=== PATIENT | male | born 1965 | race Caucasian/White ===

== ENCOUNTER 2024-03-18 10:19 | Emergency (ER) | payer OTHER ==
[2024-03-18 10:42] VITALS: PULSE 95; TEMP 98.3
--- NOTE | 2024-03-18 10:59 | ERPHSYRPT ---
- History of Present Illness Time Seen by Provider: 03/18/24 10:45 Historian: patient Exam Limitations: no limitations Patient Subjective Stated Complaint: Pt was eating a steak last night and feels that it is stuck just above the stomach, pt had it happen the day before and it finally had went down Triage Nursing Assessment: Pt brought self to the ER, vitals wnl, rates pain as 4/10, pulses normal, skin n/w/d, tried to take his medication this morning and vomited it up, no difficulty breathing, spitting up, doesn't appear to be in any distress Physician History: 58yo m pmhx multiple myeloma presents via private vehicle for food bolus sensation in his chest since for the past 18h. Pt states he was having steak for dinner last night when he felt like it "got stuck," reports discomfort in his epigastric region. Pt states he was unable to take his pills this AM, states he regurgitated them. Pt states he has been able to take small sips of water but reports no solid intake. Pt states he has had this same thing in the past, usually resolves w/ activity but has not this time. Pt states he had a similar episode 2d ago that resolved. Pt was recently started on new chemo medications, is concerned that they may have caused his sx. Pt denies cp, soa. Timing/Duration: yesterday Activities at Onset: none Quality: sharpness Abdominal Pain Onset Location: epigastric Pain Radiation: no radiation Severity of Pain-Max: mild Severity of Pain-Current: mild Modifying Factors: Improves With: nothing Associated Symptoms: denies symptoms Allergies/Adverse Reactions: Xihddvp-FMZ-[id number] Reductase Inhibitor Allergy (Verified 03/18/24 10:42) Home Medications: Acyclovir 200 mg Cap [Acyclovir] 200 mg PO BID 03/18/24 [History] Apixaban [Eliquis] 2.5 mg PO BID 03/18/24 [History] Aspirin 81 mg PO DAILY 03/18/24 [History] Biotin 5,000 mcg PO DAILY 03/18/24 [History] Hzdxfobyscc-Igoorzxjhvrlh-Yrkt [Darzalex Faspro 1,800Mg-30,000] 0 ml SQ UD 03/18/24 [History] Elotuzumab [Empliciti] 300 mg IV UD 03/18/24 [History] Fluticasone Propionate [Flonase NASAL] 1 spray NS DAILY 03/18/24 [History] Gemfibrozil [Lopid] 600 mg PO BID 03/18/24 [History] Lenalidomide [Revlimid] 15 mg PO DAILY 03/18/24 [History] Magnesium 200 mg PO DAILY 03/18/24 [History] Metolazone 2.5 mg [Zaroxolyn 2.5 MG] 2.5 mg PO UD 03/18/24 [History] Metoprolol Succinate 25 mg Xl* [Toprol-Xl 25MG Tablets] 25 mg PO DAILY 03/18/24 [History] PANTOPRAZOLE 40 mg Tablet [Protonix 40MG Tablet] 40 mg PO QAM 03/18/24 [History] Potassium Chloride 20 meq PO UD 03/18/24 [History] Sod Phos Di, Rush/K Phos Rush [K-Phos Neutral Tablet] 250 mg PO UD 03/18/24 [History] Torsemide 20 mg [Demadex 20 mg] 20 mg PO DAILY 03/18/24 [History] dexAMETHasone [Dexamethasone] 4 mg PO UD 03/18/24 [History] Hx Influenza Vaccination/Date Given: Yes Hx Pneumococcal Vaccination/Date Given: Yes Travel Risk - International Travel Have you traveled outside of the country in past 3 weeks: No - Emerging Infectious Disease Are you exhibiting symptoms associated with any current EIDs: No - Review of Systems Constitutional: No Symptoms Respiratory: No Cough, No Dyspnea, No Stridor, No Wheezing Cardiac: No Chest Pain, No Edema, No Palpitations Abdominal/Gastrointestinal: Abdominal Pain, Vomiting, No Hematemesis, No Hematochezia - Past Medical History Pertinent Past Medical History: Yes Cardiac History: Congestive Heart Failure Other Medical History: has some kind of cancer - Past Surgical History Past Surgical History: Yes Cardiac: CABG, Cardiac Stent - Social History Smoking Status: Never smoker Exposure to second hand smoke: No Drug Use: none - Social Determinants of Health Will the patient participate in the screening: Yes Do you worry about a steady place to live?: No Do you have any problems with any of the following?: No known problems In the past 12 months,have you had to go without utilities?: No Transportation Issues: No Has anyone in your support network made you feel unsafe?: No Have you or anyone in your house had to go without enough: No - Nursing Vital Signs Nursing Vital Signs: Initial Vital Signs Temperature 98.3 F 03/18/24 10:33 Pulse Rate 95 H 03/18/24 10:33 Blood Pressure 122/81 03/18/24 10:33 O2 Sat by Pulse Oximetry 97 03/18/24 10:33 Pain Scale Pain Intensity 4 - Physical Exam General Appearance: no apparent distress, alert Respiratory Exam: normal breath sounds, lungs clear, airway intact, No chest tenderness, No respiratory distress Cardiovascular Exam: regular rate/rhythm, normal heart sounds Gastrointestinal/Abdomen Exam: soft, normal bowel sounds, No tenderness, No distention, No mass, No guarding SpO2 Interpretation: normal SpO2: 97 O2 Delivery: Room Air - Course EKG Interpreted by Me: RATE (67), Sinus Rhythm, Other (qtcb 476, not suggestive of acute ischemia) Ordered Tests: Active Orders 24 hr Category Date Time Status CHEST 2 VIEWS (PA AND LAT) Stat Exams 03/18/24 10:50 Taken CHEST WITHOUT CONTRAST [CT] Stat Exams 03/18/24 13:28 Completed Medication Summary Discontinued Medications Generic Name Dose Route Start Last Admin Trade Name Ivelisse PRN Reason Stop Dose Admin Glucagon 1 mg 03/18/24 10:52 03/18/24 11:08 Glucagon 1 Mg/Vial Vial IV 03/18/24 10:53 1 mg STAT ONE Administration Glucagon Confirm 03/18/24 11:03 Glucagon 1 Mg/Vial Vial Administered 03/18/24 11:04 Dose 1 mg .ROUTE .STK-MED ONE Glucagon 1 mg 03/18/24 12:15 03/18/24 12:27 Glucagon 1 Mg/Vial Vial IV 03/18/24 12:16 1 mg STAT ONE Administration Glucagon Confirm 03/18/24 12:25 Glucagon 1 Mg/Vial Vial Administered 03/18/24 12:26 Dose 1 mg .ROUTE .STK-MED ONE Ondansetron HCl 4 mg 03/18/24 12:15 03/18/24 12:27 Ondansetron Hcl 4 Mg/2 Ml Vial IV 03/18/24 12:16 4 mg STAT ONE Administration Ondansetron HCl Confirm 03/18/24 12:21 Ondansetron Hcl 4 Mg/2 Ml Vial Administered 03/18/24 12:22 Dose 4 mg .ROUTE .STK-MED ONE Sterile Water Confirm 03/18/24 12:25 Water For Injection,Sterile 10 Ml Vial Administered 03/18/24 12:26 Dose 10 ml IJ .STK-MED ONE - Progress Progress: unchanged Progress Note: 03/18/24 14:47 CT chest: Distal esophageal lodged forign body just above the gasteroesophageal junction. 03/18/24 15:01 I discussed pt case and imaging w/ general surgeon Dr Sonny Pérez who states he will perform endoscopy w/ retrieval of food bolus plan for surgery at 1600, OR team called from ED - Departure Departure Disposition: Release to OR/SDC Clinical Impression: Obstruction of esophagus due to food impaction Condition: Stable Critical Care Time: No Referrals: DOCTOR,NO FAMILY [Primary Care Provider] - Follow up/PCP as directed
[2024-03-18] MEDS ORDERED: GlucaGen 1 MG ONE ×2 (11:03→12:25)
[2024-03-18] MEDS: GlucaGen 1 MG IV ONE ×2 (11:08→12:27)
[2024-03-18] MEDS ORDERED: Zofran 4 MG/2 ML VIAL ONE ×2 (12:21→16:03)
[2024-03-18] MEDS ORDERED: Sterile H2O 10 ml IJ ONE (12:25)
[2024-03-18] MEDS: Zofran 4 MG/2 ML VIAL IV ONE (12:27)
--- NOTE | 2024-03-18 14:37 | XRAY ---
CLINICAL HISTORY: food bolus COMPARISON: None TECHNIQUE: Contiguous 3.[address] images of the chest were acquired without administration of intravenous contrast. Coronal and sagittal reconstructions were obtained. One of the following dose reduction techniques was utilized for this exam.Automated exposure control, adjustment of the mA and/or kV according to patient size, and use of iterative reconstruction. FINDINGS: A dense forign body noted at distal esophagus 13 mm, above the gasteroesophagyeal junction with proximal esophageal dilatation , filed with air and fluid. The scanned pulmonary parenchyma shows no definite consolidative lesions. Atelectatic band noted at left lower lobe. No free or encysted pleural effusion. Heart size is normal, and there is no pericardial effusion. No pathologically enlarged mediastinal, hilar or axillary lymph node identified. There is no definite mass lesion in the chest wall. Scanned upper abdomen is unremarkable. IMPRESSION: Distal esophageal lodged forign body just above the gasteroesophageal junction. Electronically Signed by: Leora Ibanez MD. (03/18/2024 14:33:19 EDT)
[2024-03-18 14:48] VITALS: O2SAT 97
[2024-03-18] MEDS ORDERED: Quelicin Fliptop 200 MG/10 ML ONE (16:03)
[2024-03-18] MEDS ORDERED: Xylocaine-Mpf 2% 5 Ml Vial ONE (16:03)
[2024-03-18] MEDS ORDERED: SUBLIMAZE 100 MCG/2 ML ONE (16:03)
[2024-03-18] MEDS ORDERED: DIPRIVAN 200 MG/20 ML IV ONE (16:03)
--- NOTE | 2024-03-18 16:12 | PCM.CONS ---
History of Present Illness - Reason for Consult Consulting Provider: TENZIN SAMAYOA MD History of Present Illness: is a 58 year old male. 58yo pmh listed. did have an egd sep 2020 around the time of multiple myeloma dx. does have on and off heartburn. is having dysphagia with occsional food sticking but this is the first time hes had to have egd for it. 5pm yest was eating steak. unable to handle secretions since then. spitting up. no other sx. "- History of Present Illness Time Seen by Provider: 03/18/24 10:45 Historian: patient Exam Limitations: no limitations Patient Subjective Stated Complaint: Pt was eating a steak last night and feels that it is stuck just above the stomach, pt had it happen the day before and it finally had went down Triage Nursing Assessment: Pt brought self to the ER, vitals wnl, rates pain as 4/10, pulses normal, skin n/w/d, tried to take his medication this morning and vomited it up, no difficulty breathing, spitting up, doesn't appear to be in any distress Physician History: 58yo m pmhx multiple myeloma presents via private vehicle for food bolus sensation in his chest since for the past 18h. Pt states he was having steak for dinner last night when he felt like it "got stuck," reports discomfort in his epigastric region. Pt states he was unable to take his pills this AM, states he regurgitated them. Pt states he has been able to take small sips of water but reports no solid intake. Pt states he has had this same thing in the past, usually resolves w/ activity but has not this time. Pt states he had a similar episode 2d ago that resolved. Pt was recently started on new chemo medications, is concerned that they may have caused his sx. Pt denies cp, soa. Timing/Duration: yesterday Activities at Onset: none Quality: sharpness Abdominal Pain Onset Location: epigastric Pain Radiation: no radiation Severity of Pain-Max: mild Severity of Pain-Current: mild Modifying Factors: Improves With: nothing Associated Symptoms: denies symptoms Allergies/Adverse Reactions: Ptldwzx-VFB-PfG Reductase Inhibitor Allergy (Verified 03/18/24 10:42) Home Medications: Acyclovir 200 mg Cap [Acyclovir] 200 mg PO BID 03/18/24 [History] Apixaban [Eliquis] 2.5 mg PO BID 03/18/24 [History] Aspirin 81 mg PO DAILY 03/18/24 [History] Biotin 5,000 mcg PO DAILY 03/18/24 [History] Nukpajuhdap-Lbifiyaygxgsz-Dnut [Darzalex Faspro 1,800Mg-30,000] 0 ml SQ UD 03/18/24 [History] Elotuzumab [Empliciti] 300 mg IV UD 03/18/24 [History] Fluticasone Propionate [Flonase NASAL] 1 spray NS DAILY 03/18/24 [History] Gemfibrozil [Lopid] 600 mg PO BID 03/18/24 [History] Lenalidomide [Revlimid] 15 mg PO DAILY 03/18/24 [History] Magnesium 200 mg PO DAILY 03/18/24 [History] Metolazone 2.5 mg [Zaroxolyn 2.5 MG] 2.5 mg PO UD 03/18/24 [History] Metoprolol Succinate 25 mg Xl* [Toprol-Xl 25MG Tablets] 25 mg PO DAILY 03/18/24 [History] PANTOPRAZOLE 40 mg Tablet [Protonix 40MG Tablet] 40 mg PO QA 03/18/24 [History] Potassium Chloride 20 meq PO UD 03/18/24 [History] Sod Phos Di, Gooding/K Phos Gooding [K-Phos Neutral Tablet] 250 mg PO UD 03/18/24 [History] Torsemide 20 mg [Demadex 20 mg] 20 mg PO DAILY 03/18/24 [History] dexAMETHasone [Dexamethasone] 4 mg PO UD 03/18/24 [History] Hx Influenza Vaccination/Date Given: Yes Hx Pneumococcal Vaccination/Date Given: Yes Travel Risk - International Travel Have you traveled outside of the country in past 3 weeks: No - Emerging Infectious Disease Are you exhibiting symptoms associated with any current EIDs: No - Review of Systems Constitutional: No Symptoms Respiratory: No Cough, No Dyspnea, No Stridor, No Wheezing Cardiac: No Chest Pain, No Edema, No Palpitations Abdominal/Gastrointestinal: Abdominal Pain, Vomiting, No Hematemesis, No Hematochezia - Past Medical History Pertinent Past Medical History: Yes Cardiac History: Congestive Heart Failure Other Medical History: has some kind of cancer - Past Surgical History Past Surgical History: Yes Cardiac: CABG, Cardiac Stent - Social History Smoking Status: Never smoker Exposure to second hand smoke: No Drug Use: none - Social Determinants of Health Will the patient participate in the screening: Yes Do you worry about a steady place to live?: No Do you have any problems with any of the following?: No known problems In the past 12 months,have you had to go without utilities?: No Transportation Issues: No Has anyone in your support network made you feel unsafe?: No Have you or anyone in your house had to go without enough: No" Medications & Allergies Home Medications: Home Medication List Acyclovir 200 mg Cap [Acyclovir] 200 mg PO BID 03/18/24 [History Confirmed 03/18/24] Apixaban [Eliquis] 2.5 mg PO BID 03/18/24 [History Confirmed 03/18/24] Aspirin 81 mg PO DAILY 03/18/24 [History Confirmed 03/18/24] Biotin 5,000 mcg PO DAILY 03/18/24 [History Confirmed 03/18/24] Awiaoydnyet-Cuaptxmffdmad-Gted [Darzalex Faspro 1,800Mg-30,000] 0 ml SQ UD 03/18/24 [History Confirmed 03/18/24] Elotuzumab [Empliciti] 300 mg IV UD 03/18/24 [History Confirmed 03/18/24] Fluticasone Propionate [Flonase NASAL] 1 spray NS DAILY 03/18/24 [History Confirmed 03/18/24] Gemfibrozil [Lopid] 600 mg PO BID 03/18/24 [History Confirmed 03/18/24] Lenalidomide [Revlimid] 15 mg PO DAILY 03/18/24 [History Confirmed 03/18/24] Magnesium 200 mg PO DAILY 03/18/24 [History Confirmed 03/18/24] Metolazone 2.5 mg [Zaroxolyn 2.5 MG] 2.5 mg PO UD 03/18/24 [History Confirmed 03/18/24] Metoprolol Succinate 25 mg Xl* [Toprol-Xl 25MG Tablets] 25 mg PO DAILY 03/18/24 [History Confirmed 03/18/24] PANTOPRAZOLE 40 mg Tablet [Protonix 40MG Tablet] 40 mg PO QAM 03/18/24 [History Confirmed 03/18/24] Potassium Chloride 20 meq PO UD 03/18/24 [History Confirmed 03/18/24] Sod Phos Di, Gooding/K Phos Gooding [K-Phos Neutral Tablet] 250 mg PO UD 03/18/24 [History Confirmed 03/18/24] Torsemide 20 mg [Demadex 20 mg] 20 mg PO DAILY 03/18/24 [History Confirmed 03/18/24] dexAMETHasone [Dexamethasone] 4 mg PO UD 03/18/24 [History Confirmed 03/18/24] Allergies/Adverse Reactions: Allergies Allergy/AdvReac Type Severity Reaction Status Date / Time Gotbqcu-ZUO-OaQ Reductase Allergy Verified 03/18/24 10:42 Inhibitor - Past Medical History Past Medical History: Yes Cardiac History: Congestive Heart Failure Comment: has some kind of cancer - Past Surgical History Past Surgical History: Yes Cardiac History: CABG, Cardiac Stent - Social History Smoking Status: Never smoker Exposure to second hand smoke: No Alcohol: None Drug Use: none - Social Determinants of Health Will the patient participate in the screening: Yes Do you worry about a steady place to live?: No Do you have any problems with any of the following?: No known problems In the past 12 months,have you had to go without utilities?: No Have you or anyone in your house had to go without enough: No Transportation Issues: No Has anyone in your support network made you feel unsafe?: No - Physical Exam Vital Signs: Vital Signs - 24 hr Temp Pulse BP BP Pulse Ox 03/18/24 15:29 97 03/18/24 15:20 122/81 97 03/18/24 14:00 103/72 96 03/18/24 13:39 105/82 93 L 03/18/24 13:30 113/68 98 03/18/24 13:00 110/68 98 03/18/24 12:30 110/80 94 L 03/18/24 12:05 113/72 97 03/18/24 11:30 120/84 03/18/24 10:33 98.3 F 95 H 122/81 97 Additional Findings: 03/18/24 16:12 nad neck symmetric nonlabored resps rrr nd, soft, nttp, no edema Results - Radiology Impressions Radiology Exams & Impressions: Radiology Procedures Category Date Time Status CHEST 2 VIEWS (PA AND LAT) Stat Exams 03/18/24 10:50 Taken CHEST WITHOUT CONTRAST [CT] Stat Exams 03/18/24 13:28 Completed Assessment/Plan (1) Obstruction of esophagus due to food impaction Current Visit: Yes Status: Acute Assessment & Plan: 58yo with food bolus steak since last night 5pm. unabel to handle oral secrtions. last eliquis probably last night tried this morning but threw it up. is on daily ppi. -egd now. Code(s): T18.128A - FOOD IN ESOPHAGUS CAUSING OTHER INJURY, INITIAL ENCOUNTER; W44.F3XA - FOOD ENTERING VIA NATURAL ORIFICE, INITIAL ENCOUNTER
[2024-03-18 16:13] VITALS: BP 119/68
--- NOTE | 2024-03-18 20:29 | XRAY ---
Indication: Food bolus. Comparison: None PA/lateral chest hyperinflated and clear. Heart not enlarged with CABG and right Port-A-Cath. Bony thorax intact. Impression: Nonacute hyperinflated chest with chronic features.
--- NOTE | 2024-03-19 11:47 | OP ---
SURGERY DATE/TIME: 03/18/2024 1614 - 1632 PREOPERATIVE DIAGNOSIS: Esophageal food bolus. POSTOPERATIVE DIAGNOSIS: Esophageal food bolus. PROCEDURE PERFORMED: Esophagogastroduodenoscopy with foreign body removal. SURGEON: Ye Pérez MD ANESTHESIA: General anesthesia. PATIENT CONDITION: Stable. COMPLICATIONS: None. SPECIMENS: None. INDICATIONS: The patient is a 58-year-old male who does have a history of some dysphagia with occasional food getting stuck. However, on March 17 at 5 p.m., he was eating some steak and was unable to get it to pass and is not handling oral secretions since that time. Presents to the emergency department. Lab work unremarkable. He does take Eliquis, the last was about 24 hours ago. Geraldo discussion was had with the patient. Recommendation for EGD. We do need to clear the food bolus. He would like to proceed with that and may or may not proceed with dilation depending on how it looks. FINDINGS: 1) Esophageal food bolus, distal esophagus. There is a mild mucosal disruption just from pushing the food bolus forward, so no dilation was performed. 2) Normal stomach and duodenum. DESCRIPTION OF PROCEDURE: Patient brought to the operating room. Routinely rapid sequence intubation. A time-out was performed. The gastroscope was then inserted through the mouth. The esophagus was full of liquid, which was suctioned out and there was a piece of steak at the distal esophagus, which was able to be pushed forward with a dental presser. The stomach was normal in appearance. The duodenum was normal in appearance. Retroflexion, no obvious hiatal hernia. The distal esophagus does show a distal esophageal benign-appearing stricturing that had a mild mucosal disruption just from pushing the food bolus forward and there was a little bit of rawness there and acute inflammation but there was no evidence of any malignancy. The scope was advanced to the stomach, suctioned out, scope was withdrawn. The rest of the esophagus was normal. Patient tolerated the procedure well. RECOMMENDATIONS: Should be able to discharge home if he is tolerating oral intake. Apparently, the patient lives in [place], so there is no specific pathology to follow up with us here. However, I certainly do recommend a followup with an endoscopist in the next month. I would consider doing a repeat EGD with dilation given his symptoms.
== END 2024-03-18 17:08 | disposition home or self-care (01) ==
LOC: ED 10:19 → SDC 16:26 → ED 17:08
DX: T18.128A Food in esophagus causing other injury, initial encounter (principal); W44.F3XA Food entering into or through a natural orifice, initial encounter; I50.9 Heart failure, unspecified; Z79.01 Long term (current) use of anticoagulants; Z79.52 Long term (current) use of systemic steroids; Z79.899 Other long term (current) drug therapy
CPT/HCPCS: 71046; 71250; 96374; 96375; 99140; 99283; J0330; J1610; J2405; J2704; J3010